=== PATIENT | male | born 1975 | race Caucasian/White ===

== ENCOUNTER 2017-11-04 15:39 | Emergency (ER) | payer MEDICAID ==
[~2017-11-04] VITALS: Ht 177.8 cm; Wt 53.5 kg
[2017-11-04 15:47] VITALS: BP 114/72
[2017-11-04] MEDS ORDERED: HYDROcodone/APAP 5/325 TABLET PO STA (16:05)
[2017-11-04] MEDS ORDERED: HYDROcodone/APAP 5/325 TABLET ONE (16:11)
== END 2017-11-04 16:53 | disposition home or self-care (01) ==
LOC: ED 16:47
DX: S22.32XA Fracture of one rib, left side, initial encounter for closed fracture (principal); J15.9 Unspecified bacterial pneumonia; F17.200 Nicotine dependence, unspecified, uncomplicated; Y04.0XXA Assault by unarmed brawl or fight, initial encounter; Y93.89 Activity, other specified; Y99.8 Other external cause status; Y92.410 Unspecified street and highway as the place of occurrence of the external cause
CPT/HCPCS: 99284